=== PATIENT | female | born 1975 | race Caucasian/White ===

== ENCOUNTER → 2016-06-22 | Outpatient (CLI) | payer OTHER ==
--- NOTE | 2016-06-22 10:52 | KCIC ---
PROCEDURE CT head without contrast. HISTORY Headache. Dizziness and nausea times 2-[address] imaging of the brain is performed without IV contrast. PQRS: One or more the following individualized dose reduction techniques were utilized for the study: 1. Automated exposure control. 2. Adjustment of the mA and/or kV according to patient size. 3. Use of iterative reconstruction technique. COMPARISON None. FINDINGS There is no midline shift or mass effect. No extra-axial fluid collection or intraparenchymal hemorrhage. Castañeda-white matter differentiation is preserved. Ventricles and sulci are normal for patient age. There is mucosal thickening in the left maxillary sinus on the 1st image. The maxillary sinuses are incompletely imaged. The other visualized paranasal sinuses and mastoid air cells are clear. There is bilateral jennifer bullosa. The globes and orbits appear intact. No acute calvarial abnormality. IMPRESSION No acute intracranial abnormality. Electronically signed by: Rambo Mackenzie MD (Jun 22, 2016 10:51:08)
== END | disposition home or self-care (01) ==
LOC: KCIC CT 10:21
PROVIDERS: ATTEND Family Medicine
DX: R51 Headache (principal); R42 Dizziness and giddiness; R11.0 Nausea
CPT/HCPCS: 70450

== ENCOUNTER → 2016-09-07 | Outpatient (CLI) | payer OTHER ==
--- NOTE | 2016-09-08 11:14 | RESP ---
DATE OF SERVICE: The patient underwent spirometry dated 09/07/2016. The FEV1 to FVC was 71% of predicted, FEV1 was 91% of predicted at 3.26 liters. There was a 6% bronchodilator response. FVC was 4.55 liters at 102% of predicted. IMPRESSION: 1. Mild air flow limitation. 2. No significant bronchodilator response. IVONNE BROWN MD DR: [email or web address]/[email or web address] JOB#: [id number] / [id number] ARTUR Pablo MD
== END | disposition home or self-care (01) ==
LOC: PF 07:54
PROVIDERS: ATTEND Nurse Practitioner
DX: J40 Bronchitis, not specified as acute or chronic (principal)
CPT/HCPCS: 94060